=== PATIENT | female | born 1930 ===

== ENCOUNTER → 2019-07-09 | Outpatient (CLI) | payer MEDICARE ==
[~2019-07-09] MED LIST: ATEN25 PO; CHOL10002 PO; WARF5 PO
== END | disposition home or self-care (01) ==
LOC: LAB 19:01 → LAB SHORT 19:01
DX: N39.0 Urinary tract infection, site not specified (principal)
CPT/HCPCS: 87077; 87086; 87186

== ENCOUNTER → 2019-08-07 | Outpatient (CLI) | payer MEDICARE | END | disposition home or self-care (01) | LOC: LAB SHORT 10:58 → LAB EV 10:58 | DX: L03.211 Cellulitis of face (principal) | CPT/HCPCS: 87070; 87205 ==

== ENCOUNTER → 2019-10-16 | Outpatient (CLI) | payer MEDICARE | LOC: LAB SHORT 15:17 → LAB EV 15:17 | DX: N39.0 Urinary tract infection, site not specified (principal) | CPT/HCPCS: 87077; 87086; 87186 ==